=== PATIENT | male | born 2000 | race Caucasian/White ===

== ENCOUNTER 2020-07-31 20:36 | Inpatient (IN) | payer MEDICAID ==
[~2020-07-31] VITALS: Ht 170.2 cm; Wt 83.0 kg
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
--- NOTE | 2020-07-31 21:47 | NUR ---
CALLED LAB FOR GED TEACHER
[2020-07-31] MEDS ORDERED: HYDROCODONE/APAP 5/325MG TABLET ONE (21:49)
[2020-07-31] MEDS ORDERED: HYDROCODONE/APAP 5/325MG TABLET PO ONE (22:00)
[2020-07-31 22:04] LABS: BASOPHILS % (AUTO) 0.4 % (0.0-2.0); EOSINOPHILS % (AUTO) 3.3 % (0.0-6.0); HEMATOCRIT 45 % (39-51); HEMOGLOBIN 15.6 g/dL (13.5-17.5); LYMPHOCYTES # (AUTO) 2.4 /CMM (0.8-4.8); LYMPHOCYTES % (AUTO) 31.8 % (20.0-44.0); MEAN CORPUSCULAR HGB CONC 35 g/dl (31.0-36.0); MEAN CORPUSCULAR VOLUME 86 fL (80-96); MONOCYTES # (AUTO) 0.5 /CMM (0.1-1.30); MONOCYTES % (AUTO) 6.8 % (2.0-12.0); NEUTROPHILS # (AUTO) 4.3 /CMM (1.8-8.9); NEUTROPHILS % (AUTO) 57.7 % (43.0-81.0); PLATELET COUNT (AUTO) 255 /CMM (150-450); RED BLOOD CELL COUNT(AUTO) 5.17 MIL/uL (4.5-6.0); WHITE BLOOD COUNT (AUTO) 7.5 K/uL (4.3-11.0)
--- NOTE | 2020-07-31 22:05 | NUR ---
XRAY AT BEDSIDE
--- NOTE | 2020-07-31 22:15 | NUR ---
DR VASQUES AT BEDSIDE
[2020-07-31 22:21] LABS: CALCIUM, SERUM 8.6 mg/dL (8.5-10.1); CREATININE 1.1 mg/dL (0.6-1.3); POTASSIUM 3.5 mmol/L (3.5-5.1)
--- NOTE | 2020-07-31 22:28 | NUR ---
ATTEMPTED TO GIVE REPORT RN BUSY. WILL CALL AGAIN
[2020-07-31] MEDS ORDERED: ONDANSETRON HCL/PF 4 MG/2 ML VIAL IVP PRN (22:30)
[2020-07-31] MEDS ORDERED: MORPHINE SULFATE INJ 2 MG/ML DISP.SYRIN IV PRN (22:30)
--- NOTE | 2020-07-31 22:30 | NUR ---
COVID SWAB SENT TO LAB
--- NOTE | 2020-07-31 22:35 | NUR ---
ATTEMPTED TO GIVE REPORT. RN WILL CALL BACK
--- NOTE | 2020-07-31 22:40 | NUR ---
gave report to SIDRA Portillo for daniela
[2020-08-01] VITALS: BP 140/79
--- NOTE | 2020-08-01 05:20 | NUR ---
RN NOTE NURSE RECIEVED REPORT FROM CHAPO VALENTE. PATIENT ADMITTED TO UNIT ABLE TO MAKE COMMANDS KNOW AND VOICE ANY CONCERNS. PATIENT HAS CLEAR LUNGS WITH NO SOB OR ANY COMPLAINTS. PATIENT CURRENTLY HAS NO PAIN AT THIS TIME. EFFECTIVE PRN PAIN MEDICATION PER PATIENT. PATIENT ABLE TO ANSWER QUESTIONS AND PROVIDE INFORMATION SELF. PATIENT A&O X4 NURSE OBSERVES PATIENT LEFT ANKLE TO HAVE WRAPPING TO LEG TO HOLD IN PLACE BONE AND PREVENT MOVEMENT. PLACED BY OUTPATIENT DOCTOR. NURSE EDUCATED PATEINT NOT TO REMOVE WRAPPING. PATIENT AWARE OF SURGERY IN AM AND REMAIN NPO AT THIS TIME. PATIENT DENIES ANY MEDICAL HISTORY NO WOUNDS NOTED AT THIS TIME. WILL MONITOR AN UPDATE NEEDED.
[2020-08-01] MEDS ORDERED: ANESTHESIA TRAY IN PYXIS 1 EA TRAY MC ONE (06:14)
[2020-08-01] MEDS ORDERED: FENTANYL PF 100MCG/2ML AMPUL ONE (06:22)
[2020-08-01 06:33] LABS: BASOPHILS % (AUTO) 0.4 % (0.0-2.0); EOSINOPHILS % (AUTO) 4.7 % (0.0-6.0); HEMATOCRIT 42 % (39-51); HEMOGLOBIN 14.6 g/dL (13.5-17.5); LYMPHOCYTES # (AUTO) 2.8 /CMM (0.8-4.8); LYMPHOCYTES % (AUTO) 42.3 % (20.0-44.0); MEAN CORPUSCULAR HGB CONC 35 g/dl (31.0-36.0); MEAN CORPUSCULAR VOLUME 85 fL (80-96); MONOCYTES # (AUTO) 0.4 /CMM (0.1-1.30); MONOCYTES % (AUTO) 6.8 % (2.0-12.0); NEUTROPHILS % (AUTO) 45.8 % (43.0-81.0); PLATELET COUNT (AUTO) 232 /CMM (150-450); RED BLOOD CELL COUNT(AUTO) 4.93 MIL/uL (4.5-6.0); WHITE BLOOD COUNT (AUTO) 6.5 K/uL (4.3-11.0)
[2020-08-01] MEDS ORDERED: BUPIVACAINE 0.25% 75 MG/30 ML VIAL ONE (06:33)
[2020-08-01] MEDS ORDERED: BACITRACIN 50000 UNITS/VIAL ONE (06:33)
[2020-08-01 07:09] LABS: CALCIUM, SERUM 8.5 mg/dL (8.5-10.1); MAGNESIUM 2.3 mg/dL (1.8-2.4); PHOSPHORUS 4.8 mg/dL (2.5-4.9); POTASSIUM 3.5 mmol/L (3.5-5.1)
[2020-08-01] MEDS ORDERED: FLUMAZENIL 0.5 MG VIAL ONE (07:50)
[2020-08-01] MEDS ORDERED: HYDR-4303 PO ×2 (08:32→13:57)
[2020-08-01 08:44] VITALS: BP 116/66
== END 2020-08-01 14:30 | disposition home or self-care (01) | DRG 313 ==
LOC: ER 20:44 → MED 22:30
PROVIDERS: ATTEND Nurse Practitioner Family
PROC: 0QSH04Z Reposition Left Tibia with Internal Fixation Device, Open Approach (ICD-10-PCS; principal; 2020-08-01)
DX: S82.52XA Displaced fracture of medial malleolus of left tibia, initial encounter for closed fracture (principal); Y93.53 Activity, golf; V86.59XA Driver of other special all-terrain or other off-road motor vehicle injured in nontraffic accident, initial encounter; Y92.89 Other specified places as the place of occurrence of the external cause; Z72.0 Tobacco use; Z20.822 Contact with and (suspected) exposure to COVID-19
CPT/HCPCS: 36415; 71045-TC; 80048-TC; 82962-TC; 83735-TC; 84100-TC; 85025-TC; 85730-TC; 87081-TC; 97116-TC; 97530-TC; A6402; G0378; J0690; J1100; J1885; J2270; J2405; J2704; J3010; J3490